=== PATIENT | male | born 1950 | race Caucasian/White ===

== ENCOUNTER 2020-05-15 08:25 | Emergency (ER) | payer OTHER, MEDICARE ==
[2020-05-15] MEDS ORDERED: Adacel (T-DAP) 0.5 ML SYRINGE ONE (08:41)
[2020-05-15] MEDS ORDERED: Acetaminophen 500 MG TAB ONE (08:41)
--- NOTE | 2020-05-15 09:14 | CT ---
CT of thehead: 05/15/2020 COMPARISON:None available HISTORY:Fall, trauma, head pain TECHNIQUE: Serial axial CT imaging at5 mm intervals from thevertex through skull base without contras t. Coronal and sagittal reformatted imaging obtained Findings:The imaged paranasal sinuses and mastoid air cells appear unremarkable. 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 No intracranial hemorrhage, midline shift, mass effe ct, or ventricular enlargement. No acute osseous abnormality. Impression:No acute findings.
--- NOTE | 2020-05-15 09:18 | RAD ---
Exam:Right shoulder 3 views HISTORY: Injury. Fall. COMPARISON: None FINDINGS: Limited evaluation the glenohumeral joint space. There does appear to be joint space narrow ing. Severe narrowing of the acromioclavicular joint space. No evidence of fracture. IMPRESSION: No fracture.
== END 2020-05-15 09:35 | disposition home or self-care (01) ==
LOC: NAV ERS 08:25
DX: S01.81XA Laceration without foreign body of other part of head, initial encounter (principal); S40.011A Contusion of right shoulder, initial encounter; E03.9 Hypothyroidism, unspecified; K21.9 Gastro-esophageal reflux disease without esophagitis; I10 Essential (primary) hypertension; Z87.891 Personal history of nicotine dependence; Z23 Encounter for immunization; W01.10XA Fall on same level from slipping, tripping and stumbling with subsequent striking against unspecified object, initial encounter
CPT/HCPCS: 12011; 70450; 90471; 90715